=== PATIENT | female | born 2000 | race African-American/Black ===

== ENCOUNTER 2019-01-29 16:00 | Emergency (ER) | payer OTHER ==
[~2019-01-29] VITALS: Ht 172.7 cm; Wt 107.0 kg
[~2019-01-29 16:00] MED LIST: CODEINE SULFATE30 MG PO; DIFLUCAN150 M1 PO; DOXYCYCLINE 10100 MG PO
[2019-01-29] MEDS ORDERED: FLAGYL500 M1 PO (18:51)
[2019-01-29 19:30] VITALS: BP 108/74
[2019-01-29 20:38] LABS: URINE BILIRUBIN NEGATIVE (Negative); URINE BLOOD TRACE (Negative); URINE CLARITY CLEAR; URINE COLOR YELLOW; URINE GLUCOSE-RANDOM* NEGATIVE (Negative); URINE KETONES TRACE (Negative); URINE LEUKOCYTES NEGATIVE (Negative); URINE NITRITE NEGATIVE (Negative); URINE PROTEIN (DIPSTICK) 1+ (Negative); URINE SPECIFIC GRAVITY >= 1.030 (1.005-1.035); URINE UROBILINOGEN 0.2 E.U./dl (0.2-1.0)
[2019-01-29 20:54] LABS: BACTERIA 1-9 Few /HPF (None Seen); CASTS None Seen /LPF (None Seen); CRYSTALS None Seen /LPF (None Seen); SQUAMOUS 4-10 Moderate /LPF (0-3); URINE RBC 0-2 Rare /HPF (0-2); URINE WBC 6-15 Few /HPF (0-5)
== END 2019-01-29 19:32 | disposition home or self-care (01) ==
LOC: ER 16:00
PROVIDERS: Nurse Practitioner
DX: J06.9 Acute upper respiratory infection, unspecified (principal); F17.210 Nicotine dependence, cigarettes, uncomplicated

== ENCOUNTER → 2019-02-08 | Outpatient (CLI) | payer OTHER ==
[2019-02-08] VITALS (7 sets, daily range): BP systolic 98–112; BP diastolic 50–70
[~2019-02-08] VITALS: Ht 172.7 cm; Wt 104.3 kg
[~2019-02-08] MED LIST changes: +ACETAMINOPHEN325 M1 PO; +FLAGYL500 M1 PO; +HYDROCODON-ACE1 EAC7 PO; +PERCOCET PO; +SENNA8.6 MG PO; +TRAMADOL 50 MG50 MG PO
--- NOTE | 2019-02-08 13:34 | NUR ---
1330-PT DC'D HOME PER . PT RECOVERED IN HOLDING AFTER BIOPSY FOR ABOUT AN HOUR, VSS, FAMILY REMAINED AT BS. DC INSTRUCTIONS REVIEWED [facility] PT AND PTS MOTHER, ALL QUESTIONS ANSWERED. BANDAIDE OVER BIOPSY SITE-C/D/I
--- NOTE | 2019-02-12 17:06 | PATH ---
[facility] [address] [place] [address] PATHOLOGY RPT PROCEDURE Name: ROSETTA PHILIPPE Room #: REG FABIOLA Gomez.#: [id number] ������������������ Admission: 02/08/19 ������������������ Date of : [birth year] Discharge: Report #: [id number] Path Case #: [id number] [facility] Accession Number: [id number] . 01 Material submitted: . mediastinum - MEDIASTINAL MASS . 01 Clinical history: . Mediastinal mass . 02 Diagnosis: "Mediastinal mass", image guided needle biopsy: - Scant fragments of tissue with an atypical lymphoid infiltrate, worrisome for Hodgkin lymphoma (see comment). (CLW:rolando 02/12/2019) QTP/02/12/2019 . 02 Comment: Sections show needle core biopsy fragments of tissue with a fibrous stroma. Fibrous bands are noted. A cellular infiltrate composed of histiocytes, granulocytes and plasma cells are seen. Scattered atypical cells are noted. No classic Albert Peter cells are identified. Properly controlled immunohistochemical stains are performed. . Block A1 CD30 - numerous scattered CD30 positive cells, CD15 - rare possible co-expression with CD30, MUM1 - scattered larger cells noted, PAX5 - highlights B cells, rare larger cell weakly staining, CD3 - highlights admixed T cells, ALK1 - nonreactive. . Overall the diagnosis is worrisome for Hodgkin lymphoma. Additional tissue / re-biopsy for complete morphological examination with fresh tissue submitted for flow cytometry may provide additional information, if clinically indicated. The case is co-reviewed with Dr. Sharona Hope and Dr. Kari Hurtado. Clinical and radiographic correlation is required. . (CLW:rolando 02/12/2019) . 02 Electronically signed: . Ju Guillen MD, Pathologist NPI- [id number] . 01 Gross description: . The specimen is received in formalin, labeled "Rosetta Philippe, CT-guided, mediastinal mass", are multiple mak needle cores and its [address] [address] PATHOLOGY RPT PROCEDURE Name: PHILIPPEROSETTA MARTE Room #: REG [facility].#: [id number] ������������������ Admission: 02/08/19 ������������������ Date of : 98 Discharge: Report #: [id number] Path Case #: [id number] fragments measuring 0.7 x 0.4 x 0.1 cm in aggregate. The specimen is entirely submitted in A1-A2. (SWS; 02/08/2019) [facility] . 02 Pathologist provided ICD-10: J98.59 . 02 CPT . 302963, J74617, S06798 Specimen Comment: A courtesy copy of this report has been sent to Specimen Comment: [phone], . Specimen Comment: Report sent to / DR LIMON Performed at: 01 [facility] [address] [place] [address] [id number] MD Jose Roberto Bolanos MD Phone: [phone] Performed at: 02 [facility] [address] [id number] MD Cy Solomon MD Phone: [phone]
== END | disposition home or self-care (01) ==
LOC: CAT 08:58
DX: J98.59 Other diseases of mediastinum, not elsewhere classified (principal); Z98.890 Other specified postprocedural states; F17.210 Nicotine dependence, cigarettes, uncomplicated; Z79.891 Long term (current) use of opiate analgesic; Z87.440 Personal history of urinary (tract) infections; Z79.899 Other long term (current) drug therapy

== ENCOUNTER 2019-02-17 10:44 | Inpatient (IN) | payer OTHER ==
[~2019-02-17] VITALS: Ht 172.7 cm; Wt 103.4 kg
[~2019-02-17 10:44] MED LIST changes: -ACETAMINOPHEN325 M1 PO; -HYDROCODON-ACE1 EAC7 PO; -PERCOCET PO; -SENNA8.6 MG PO
[2019-02-17 10:48] VITALS: BP 129/103
[2019-02-17 11:15] LABS: HEMATOCRIT 38.1 % (37.0-47.0); MCH 29.6 pg (26.0-34.0); MCHC 34.1 g/dL (28.0-37.0); MCV 86.8 fL (80.0-100.0); PLATELET COUNT 596 thou/uL (150-400); RBC 4.39 mil/uL (4.20-5.00); RDW 13.7 % (10.5-14.5); WBC 7.6 thou/uL (4.0-11.0)
[2019-02-17 11:18] LABS: CALCIUM 10.1 mg/dL (8.5-10.1); CREATININE 0.9 mg/dL (0.6-1.0); POTASSIUM 3.8 mmol/L (3.5-5.1)
[2019-02-17 11:24] LABS: ALBUMIN 3.7 g/dL (3.4-5.0); TOTAL BILIRUBIN 0.5 mg/dL (<0.1-1.0); TOTAL PROTEIN 9.4 g/dL (6.4-8.2)
--- NOTE | 2019-02-17 11:35 | EKG ---
[address] [address] ELECTROCARDIOGRAM REPORT Name: JAMES PHILIPPE Room #: [facility]#: [id number] ������������������ Admission: ������������������ Attend Phys: Discharge: ������������������ Date of : 98 Report #: [id number] ����������������������������������������������������������������� [id number] THIS REPORT FOR: //name// [facility] ED Test Date: 2019-02-17 Test Time: 11:25:34 Pat Name: JAMES PHILIPPE Department: Room: Gender: F Wan Support Specialist: TRES : 2000 Requested By: Angela Lopez Order Number: [id number] MD: Salvador Reagan Measurements Intervals [place] Rate: 95 P: 26 NH: 165 QRS: 26 QRSD: 89 T: 37 QT: 367 QTc: 462 Interpretive Statements Sinus rhythm No previous ECG available for comparison Electronically Signed On 02-17-2019 11:35:14 CDT by Salvador Reagan [email or web address] ��������������������������������������������� <ELECTRONICALLY SIGNED> ���������������������������������������� By: Salvador Reagan MD ��������������������������������������������� 02/17/19 1135 1125 1125 Salvador Reagan MD /EPI
[2019-02-17 12:15] LABS: ABSOLUTE NEUTROPHILS 4.5 thou/uL (1.4-8.2)
[2019-02-17 13:19] VITALS: BP 112/71
[2019-02-17 13:32] VITALS: BP 107/68
--- NOTE | 2019-02-17 13:44 | NUR ---
received report from Monica/rn in er @ 6515. pt received to room 358, settled in and oriented to room. pt up ad ha w/ a steady, balanced and coordinated gait. tele on.
[2019-02-17 14:01] LABS: APTT 33.6 Seconds (24.5-32.8); PROTIME 10.6 Seconds (9.3-11.4)
[2019-02-17 14:33] VITALS: BP 110/71
[2019-02-17 16:39] VITALS: BP 112/89
[2019-02-17 19:11] VITALS: BP 103/63
[2019-02-18 03:52] VITALS: BP 114/76
--- NOTE | 2019-02-18 04:17 | NUR ---
ASSUMED CARE OF PT AT 1900. A&Ox4, COOPERATIVE. VS STABLE. SR ON TELE. LUNG SOUNDS WERE CLEAR, A LITTLE DIMINISHED, NO COUGH OR WHEEZING. C/O PAIN, RATED 6/10 ON Q PAIN ASSMT. PAIN MED GIVEN 1X SO FAR THIS SHIFT. CONSENTS FOR PROCEDURE AND TRANSFUSION IF NEEDED SIGNED AND PLACED IN CHART. MOTHER AT BEDSIDE. UP AD DENNYS TO BR. CONTINENT. ABLE TO SLEEP OVER NOC. PROGRESSING TOWARDS POC GOALS.
[2019-02-18 07:17] VITALS: BP 102/58
[2019-02-18 11:13] VITALS: BP 96/55
--- NOTE | 2019-02-18 14:48 | NUR ---
Assumed care of pt at 0700. Pt is A&O to person, place, time, and situation. She is calm and cooperative. Tele is sinus arrythmia in the 80-90s. Pt has complained of on-going R chest pain, partially relived by medication and positioning. Pt also complanied of dizziness, chest tightness, and SOB. Notified Dr. Dailey and started PT on 2L via NC, and gave PRN medication to relieve anxiety. Upon reassessment pt reports decresed SOB and chest tightness. Pt is up ad ha to BR. Family has been at bedside. Pt is slowly progressing toward POC goals. Will continue to monitor and assess.
--- NOTE | 2019-02-18 14:50 | NUR ---
INITIAL ASSESSMENT: Received consult due to pt not having health insurance. RONY reviewed chart and spoke with attending physician. Pt was admitted from home due to shortness of breath/chest pain. Pt with mediastinal/lung mass. CTS consulted. Pt to have mediastinoscopy and bx. Oncology consulted and is following. RONY met with pt at bedside. Introduced role of SW. Pt is alert/orientated x 4. Pt lives at home and was independent with ADLS prior to admission. Pt states that she is currently working on a [place]-Medicaid application with [employer]. Provided pt with RONY's contact info. RONY is following to assist as needed with discharge planning.
[2019-02-18 15:22] VITALS: BP 113/72
[2019-02-18 19:40] VITALS: BP 106/81
[2019-02-19] VITALS (10 sets, daily range): BP systolic 93–131; BP diastolic 61–82
--- NOTE | 2019-02-19 06:25 | NUR ---
Medicated for soreness on her chest at HS with some relief. Lorazepam also given for anxiety with relief. She slept some. Kept NPO per order. O2 at 2L/NC and wears intermittently for comfort. O2 sat has been in the upper 90's. SR at rest then gets tachychardic when up to the bathroom. Will continue to monitor.
--- NOTE | 2019-02-19 07:01 | HC ---
[facility] [place] [address] CONSULTATION Name: JAMES PHILIPPE Room #: 358-P ADM IN M.R.#: [id number] Admission: 02/17/19 ������������������ Attend Phys: Mike Dailey MD Discharge: ������������������ Date of : 98 Report #: [id number] THIS REPORT FOR: //name// CC: BERNIE Dailey MD HISTORY OF PRESENT ILLNESS: The patient is a very pleasant 18-year-old -Cuban female who had presented to the hospital about a month ago with hemoptysis and cough. CAT scan on 01/15/2019 revealed an anterior mediastinal mass measuring 9.3 cm transverse x 4.6 cm AP x 8.9 cm superior to inferior. The differential consideration included thymic tumor, lymphoma, teratoma, germinoma among others. A CT needle biopsy was suspicious for Hodgkin's, but not diagnostic. The patient came to the hospital again complaining of shortness of air and hyperventilating and complaining of pain everywhere, specifically, her chest and her upper abdomen. The patient has no fever. Does have sweats and chills. Does have about a 55-pound weight loss in the last 6 months, has chest discomfort and also talks about abdominal pain, but it is up underneath the ribs, mostly on the left more than the right. Has decreased appetite. No nausea, no vomiting. No new bowel changes. No blood in her urine or stool. No skin rash. Has generalized fatigue. ALLERGIES: None known. MEDICATIONS: None. FAMILY HISTORY: No cancer. SOCIAL HISTORY: Positive for marijuana use, used in the past daily. She is not currently a student. 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 The patient's mother not in attendance at this time. PHYSICAL EXAMINATION: VITAL SIGNS: The patient's height is 5 feet 8 inches, 172.7 cm. Weight is 228 pounds or 103.7 kilograms. Note that she says she weighed 285 pounds about 6 months ago. Blood pressure is 102/58 in the left arm, O2 sat 95%, respirations 20, pulse 113 and afebrile at 98.1. MOOD: She is alert and pleasant. Face is symmetrical. Oropharynx clear. She is moving arms and legs. Speech and thought pattern appear to be normal. LYMPHATICS: No enlarged lymph nodes in the supraclavicular, cervical or axillary region. ABDOMEN: Slightly obese. No masses. Does describe some tenderness in the upper quadrants, but it is probably more subchondral and may be related to coughing. EXTREMITIES: Without clubbing, cyanosis or edema. [facility] [address] [place] [address] CONSULTATION Name: DENAEJAMES L Room #: 358-P [facility] IN M.R.#: [id number] Admission: 02/17/19 ������������������ Attend Phys: Mike Dailey MD Discharge: ������������������ Date of : 98 Report #: [id number] LABORATORY DATA: Lab here has had normal liver functions. It shows BUN of 8, creatinine of 0.9. Total protein 9.4. Albumin 3.7. Coags normal, though aPTT is barely high at 33.6 and then 31 last month. White count of 7.6, hemoglobin 13, MCV 86.8, RDW 13.7 and platelets 596,000, they were 450,000 back in December. Differential has a few extra monocytes. MEDICATIONS: At this time include p.r.n. Tylenol, p.r.n. Zofran, p.r.n. morphine, p.r.n. lorazepam, mupirocin for her nose and also cefazolin prior to surgery. ASSESSMENT AND PLAN: 1. Anterior mediastinal mass measuring 9.3 cm with sweats. I agree that malignancy is very likely; the patient is aware of this. We will await final biopsy. If this is Hodgkin's lymphoma, we will need to consider PET scan. We will also check sed rate and LDH. If it is Hodgkin's lymphoma, I would probably consider chemotherapy and possible radiation therapy given the size of the mass. We will await these issues. We will also need to make sure and check any fertility issues for the patient. 2. Elevated total protein, probably reactive in nature, but we will check serum protein electrophoresis and SIFE. 3. Lack of insurance. The patient is applying for Medicaid. If she does not get insurance, we may need to have her seen another physician on the [place] side as my employment does not allow me to see [place] residents without insurance at my office. 4. Sweats, most likely due to malignancy. We will follow with you. ��������������������������������������������� <ELECTRONICALLY SIGNED> ���������������������������������������� By: Yared Vasquez MD ��������������������������������������������� 02/19/19 0701 0843 0007 Yared Vasquez MD /nt
--- NOTE | 2019-02-19 10:17 | 2DMMODE ---
[facility] [address] [place] [address] 2 D/M-MODE ECHOCARDIOGRAM Name: JAMES PHILIPPE Room #: 358-P ADM IN M.R.#: [id number] ������������� Admission: 02/17/19 ������������� Attend Phys: Mike Dailey MD Discharge: ��� ������������� ��� Date of : [birth year] Date of Service: 02/19/19 1016 �� Report #: [id number] �������� ��������������������������������������������[id number] THIS REPORT FOR: //name// APPROVED REPORT Study performed: 02/19/2019 09:13:23 EXAM: Comprehensive 2D, Doppler, and color-flow Echocardiogram Patient Location: Echo lab Room #: [facility] Status: routine BSA: 2.14 HR: 95 bpm BP: 107/67 mmHg Rhythm: NSR Other Information Study Quality: Good Indications Pre-Op 2D Dimensions RVDd: 34.39 mm IVSd: 10.72 (7-11mm) LVOT Diam: 21.32 (18-24mm) LVDd: 48.03 mm PWd: 10.96 (7-11mm) Ascending Ao: 23.12 (22-36mm) LVDs: 32.61 (25-40mm) Aortic Root: 31.12 mm IVC: 16.00 mm Volumes Left Atrial Volume (Systole) Single Plane 4CH: 20.52 mL Single Plane 2CH: 41.92 mL LA ESV Index: 17.00 mL/m2 Aortic Valve AoV Peak Jaskaran.: 1.09 m/s AO Peak Gr.: 4.71 mmHg LVOT Max P.18 mmHg LVOT Max V: 0.89 m/s SERGO Vmax: 2.93 cm2 Mitral Valve E/A Ratio: 1.0 MV Decel. Time: 148.95 ms MV E Max Jaskaran.: 0.93 m/s [facility] [address] [place] [address] 2 D/M-MODE ECHOCARDIOGRAM Name: JAMES PHILIPPE Room #: 358-[facility] IN [facility]#: [id number] ������������� Admission: 02/17/19 ������������� Attend Phys: Mike Dailey MD Discharge: ��� ������������� ��� Date of : [birth year] Date of Service: 02/19/19 1016 �� Report #: [id number] �������� ��������������������������������������������[id number] MV A Jaskaran.: 0.92 m/s MV PHT: 43.20 ms IVRT: 83.04 ms Pulmonary Valve PV Peak Jaskaran.: 0.87 m/s PV Peak Gr.: 3.04 mmHg Pulmonary Vein P Vein S: 0.57 m/s Left Ventricle The left ventricle is normal size. There is normal LV segmental wall motion. There is normal left ventricular wall thickness. Left ventricular systolic function is normal. The left ventricular ejection fraction is within the normal range. LVEF is 55-60%. Left ventricular filling pattern is normal for age. Right Ventricle The right ventricle is normal size. The right ventricular systolic function is normal. Atria The left atrium size is normal. The right atrium size is normal. Aortic Valve The aortic valve is normal in structure. No aortic regurgitation is present. There is no aortic valvular stenosis. Mitral Valve The mitral valve is normal in structure. There is no mitral valve regurgitation noted. No evidence of mitral valve stenosis. Tricuspid Valve The tricuspid valve is normal in structure. There is no tricuspid valve regurgitation noted. Pulmonic Valve The pulmonary valve is normal in structure. There is no pulmonic valvular regurgitation. Great Vessels The aortic root is normal in size. IVC is normal in size and collapses >50% with inspiration. [facility] [address] [place] [address] 2 D/M-MODE ECHOCARDIOGRAM Name: JAMES PHILIPPE Alba Room #: 358-P [facility] IN M.R.#: [id number] ������������� Admission: 02/17/19 ������������� Attend Phys: Mike Dailey MD Discharge: ��� ������������� ��� Date of : [birth year] Date of Service: 02/19/19 1016 �� Report #: [id number] �������� ��������������������������������������������[id number] There is no pericardial effusion. <Conclusion> The left ventricle is normal size. LVEF is 55-60%. The aortic valve is normal in structure. The mitral valve is normal in structure. The tricuspid valve is normal in structure. The pulmonary valve is normal in structure. There is no pericardial effusion. ��������������������������������������������� <ELECTRONICALLY SIGNED> ���������������������������������������� By: Onur Hopkins MD ��������������������������������������������� 02/19/19 1016 1016 1016 Onur Hopkins MD /INF
--- NOTE | 2019-02-19 13:56 | NUR ---
SW reviewed chart and spoke with nursing and attending physician. Surgery scheduled for today for biopsy of mass via anterior mediastinotomy. [facility] working with [facility] on [facility] application. RONY is following to assist as needed with discharge planning.
--- NOTE | 2019-02-19 14:26 | NUR ---
PATIENT LEFT UNIT FOR OR AT 1420.
--- NOTE | 2019-02-19 16:55 | NUR ---
ASSUMED CARE OF PATIENT AT 0700. PATIENT HAS BEEN NPO SINCE MIDNIGHT. SHE HAS BEEN NSR ON TELE. PATIENT REMAINS ON 2L OF O2 FOR COMFORT, NEEDED. BILATERAL UPPER ABDOMINAL PAIN WELL RIGHT CHEST PAIN FROM MIDMORNING ON. PAIN WAS PARTIALLY RELIEVED WITH PRN MEDICATION AND REPOSITIONING. PATIENT HAS HAD MILD ANXIETY AND WAS TREATED WITH PRN MEDICATION. FAMILY AND FRIENDS HAVE BEEN AT THE BEDSIDE. PATIENT LEFT UNIT FOR PRE-OP AROUND 1440. PATIENT IS SLOWLY PROGRESSING TOWARD POC/DISCHARGE GOALS.
[2019-02-20] VITALS (8 sets, daily range): BP systolic 109–120; BP diastolic 57–61
--- NOTE | 2019-02-20 06:32 | NUR ---
Pt. didn't go to sleep till later this am. Hydrocodone x1 given for soreness on right chest incision with some relief. Tolerating po fluids well ,IVF dc'd per order. Right chest incision with dressing clean,dry and intact. Up ad ha in room with steady gait. Making progress towards care plan goals.
[2019-02-20] MEDS ORDERED: ACETAMINOPHEN325 M1 PO (11:28)
[2019-02-20] MEDS ORDERED: HYDROCODON-ACE1 EAC7 PO (11:28)
--- NOTE | 2019-02-20 13:00 | NUR ---
PT IS FAIRLY WELL CONTROLLED WITH PO NORCO...RESTING IN BED...
--- NOTE | 2019-02-20 17:00 | NUR ---
PT HEART RATE WAS ELEVATED 150'S...SHE IS WAILING IN ROOM AND PACING BACK AND FORTH...STATES HER PAIN IS 10/10 AND FEELS LIKE STABBING AND BURNING...SHE CONTINUES TO CRY HYSTERICALLY...ICE PACK GIVEN...MEDICATED WITH ATIVAN AND FENTANYL WITH GOOD RELIEF OBTAINED...DR MURO NOTIFIED...
--- NOTE | 2019-02-20 17:49 | NUR ---
PT TO DISCHARGE TO HOME..WILL FOLLOW UP WITH ONCOLOGIST AND CV SURGEON IN 2 WEEKS...SWS HAS [employer] WORKING ON MEDICAID...UNABLE TO ARRANGE HOME HEALTH UNTIL PATIENT OBTAINS MEDICAIDE...WILL REVIEW DISCHARGE PAPERS WHEN MOTHER ARRIVES...
--- NOTE | 2019-02-21 12:06 | HC ---
[facility] [address] [place] [address] CONSULTATION Name: JAMES PHILIPPE Alba Room #: 358-P [facility] IN M.R.#: [id number] Admission: 02/17/19 ������������������ Attend Phys: Mike Dailey MD Discharge: 02/20/19 ������������������ Date of : 98 Report #: [id number] THIS REPORT FOR: //name// CC: Corona Dailey DATE OF SERVICE: 02/17/2019 HISTORY OF PRESENT ILLNESS: We were asked to see the patient. The patient is a 18-year-old who presents to the Emergency Department with chest pain. The patient has a history of hospitalization at [facility] from 01/15/2019 through 01/16/2019 for hemoptysis and chest pain. This led to the diagnosis of an anterior mediastinal mass. A CT-guided biopsy was done and was read as suspicious for lymphoma, but no definitive pathologic diagnosis was made. We note at home the patient has had a several month history of weight loss, night sweats and chills and chest pain. The patient denies having fevers to me, however. The patient denies other chronic disease. ALLERGIES: None known. MEDICATIONS: None known. FAMILY HISTORY: Negative for malignancy. SOCIAL HISTORY: Positive for tobacco use. 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 REVIEW OF SYSTEMS: CONSTITUTIONAL: As mentioned, no fever, but admits to night sweats and chills. RESPIRATORY: Admits to shortness of breath. CARDIAC: Admits to chest pain. Denies palpitations. GASTROINTESTINAL: Admits to abdominal discomfort and decreased appetite. Denies nausea and vomiting. GENITOURINARY: Denies hematuria or dysuria. SKIN: Denies rash. NEUROLOGIC: Denies focal weakness, but admits to generalized fatigue. PSYCHIATRIC: Denies depression or anxiety. HEMATOLOGIC: Denies easy bruisability or anemia. ENDOCRINE: Denies goiter or tremors. PHYSICAL EXAMINATION: VITAL SIGNS: Blood pressure 107/68, heart rate 84, respiratory rate 19, temperature 36.7. GENERAL: The patient is lying in bed, seems comfortable, does not look malnourished. Appears mildly obese. [facility] [address] [place] [address] CONSULTATION Name: PHILIPPEJAMES L Room #: 358-P [facility] IN .R.#: [id number] Admission: 02/17/19 ������������������ Attend Phys: Mike Dailey MD Discharge: 02/20/19 ������������������ Date of : 98 Report #: [id number] HEENT: Pupils are round and equal. No jaundice. Normocephalic, gaze conjugate. NECK: No mass, no bruit. CHEST: Clear to auscultation. Chest wall is tender with an area of swelling in the left and the right anterior chest, but no discrete masses palpable. HEART: Rhythm regular, no murmurs. ABDOMEN: Soft. Tenderness to mild palpation, but no rebound or guarding. No masses palpable. No organomegaly is detected. SKIN: No evidence of rash or infection. EXTREMITIES: No cyanosis or edema. MUSCULOSKELETAL: No bone or joint asymmetry or deformity. NEUROLOGIC: No obvious motor or sensory dysfunction. IMPRESSION: The patient appears to have an anterior mediastinal mass based on previous CAT scan. This may be growing into the anterior chest wall. We have recommended biopsy of this via right anterior medial sternotomy. The risks and details of this were discussed with the patient. Options and alternatives were reviewed. Based on the existing histology adequate tissue sample to determine whether or not this is lymphoma as appropriate. The patient understands all of this and wishes to proceed. Thank you for the consult. ��������������������������������������������� <ELECTRONICALLY SIGNED> ���������������������������������������� By: Eduardo Rockwell MD ��������������������������������������������� 02/21/19 1206 1749 0608 Eduardo Rockwell MD /nt
--- NOTE | 2019-02-21 12:06 | O ---
[facility] [place] [address] OPERATIVE REPORT Name: JAMES PHILIPPE Room #: 358-P [facility] IN M.R.#: [id number] Admission: 02/17/19 ������������������ Attend Phys: Mike Dailey MD Discharge: 02/20/19 ������������������ Date of : [birth year] Report #: [id number] THIS REPORT FOR: //name// CC: Corona Dailey DATE OF SERVICE: 02/19/2019 PREOPERATIVE DIAGNOSIS: Anterior mediastinal mass. POSTOPERATIVE DIAGNOSIS: Anterior mediastinal mass. OPERATION: Right anterior medial sternotomy. SURGEON: Eduardo Rockwell M.D. PARTY PLAN SELLING DISTRIBUTOR: PEG Freitas ANESTHESIA: General. INDICATIONS: The patient is a 18-year-old seen at the request of Dr. Camacho and the hospitalists for an anterior mediastinal mass. The patient has been evaluated since the end of December for a large anterior mediastinal mass that on CT scan is infiltrating into the right chest wall. CT biopsy is suggestive of lymphoma, but more tissue is required for definitive diagnosis. FINDINGS AND TECHNIQUE: After general anesthesia was established, an incision was made in the second interspace on the right side. This incision was deepened through the pectoralis muscle. It was clear that there was tumor infiltrating the chest wall. In fact, we did not need to go through the chest wall to obtain satisfactory samples of tissue. Characteristic fish/material was excised. There was semblance of a capsule surrounding this pathologic tissue. This was submitted in total for permanent pathology and sent as directed by the pathologist. When hemostasis was satisfactory, the wound was closed in layers and the patient was taken to the recovery area in good condition having tolerated the procedure well. All counts reported as correct. ��������������������������������������������� <ELECTRONICALLY SIGNED> ���������������������������������������� By: Eduardo Rockwell MD ��������������������������������������������� 02/21/19 1206 1042 1249 Eduardo Rockwell MD /nt
[2019-02-22 18:05] LABS: GLOBULIN TOTAL 3.9 g/dL (2.2-3.9); M-SPIKE Not Observed g/dL (Not Observed)
== END 2019-02-20 18:31 | disposition home or self-care (01) | DRG 166 ==
LOC: ER 10:44 → 3W 12:56 → EROBS 12:56 → 3W 13:38
PROVIDERS: Internal Medicine Hematology & Oncology; Nurse Practitioner Family; ADMIT Internal Medicine
PROC: 0WBC0ZX Excision of Mediastinum, Open Approach, Diagnostic (ICD-10-PCS; principal; 2019-02-19)
DX: J98.59 Other diseases of mediastinum, not elsewhere classified (principal); E43 Unspecified severe protein-calorie malnutrition; F17.210 Nicotine dependence, cigarettes, uncomplicated; F12.90 Cannabis use, unspecified, uncomplicated; R91.8 Other nonspecific abnormal finding of lung field; E66.9 Obesity, unspecified; Z68.34 Body mass index [BMI] 34.0-34.9, adult; Z72.89 Other problems related to lifestyle; Z71.41 Alcohol abuse counseling and surveillance of alcoholic; Z71.6 Tobacco abuse counseling; Z71.51 Drug abuse counseling and surveillance of drug abuser
CPT/HCPCS: 10879; 50010; 50101; 50386; 50403; 51301; 54118; 56524; 56526; 62110; 62900; 65020; 65040; 65105; 70005

== ENCOUNTER 2019-02-25 17:13 | Emergency (ER) | payer OTHER ==
[~2019-02-25] VITALS: Ht 172.7 cm; Wt 107.0 kg
[~2019-02-25 17:13] MED LIST changes: +ACETAMINOPHEN325 M1 PO; +HYDROCODON-ACE1 EAC7 PO
[2019-02-25 17:51] LABS: ABSOLUTE NEUTROPHILS 4.8 thou/uL (1.4-8.2); BASOPHILS 0.4 % (0.0-2.0); EOSINOPHILS 2.2 % (0.0-3.0); HEMATOCRIT 36.6 % (37.0-47.0); HEMOGLOBIN 12.2 gm/dL (12.0-15.0); LYMPHOCYTES 15.2 % (24.0-44.0); MCH 29.1 pg (26.0-34.0); MCHC 33.4 g/dL (28.0-37.0); MCV 87.1 fL (80.0-100.0); MONOCYTES 8.1 % (1.0-8.0); PLATELET COUNT 484 thou/uL (150-400); POLYS 74.1 % (36.0-66.0); RDW 13.8 % (10.5-14.5); WBC 6.5 thou/uL (4.0-11.0)
[2019-02-25] MEDS ORDERED: SENNA8.6 MG PO (17:54)
[2019-02-25 17:59] LABS: CREATININE 0.8 mg/dL (0.6-1.0); POTASSIUM 3.7 mmol/L (3.5-5.1)
[2019-02-25] MEDS ORDERED: PERCOCET PO (18:45)
[2019-02-25 19:19] VITALS: BP 118/71
== END 2019-02-25 19:20 | disposition home or self-care (01) ==
LOC: ER 17:13
PROVIDERS: Emergency Medicine
DX: G89.18 Other acute postprocedural pain (principal); R07.9 Chest pain, unspecified; F41.9 Anxiety disorder, unspecified; F32.9 Major depressive disorder, single episode, unspecified; K59.00 Constipation, unspecified; J98.59 Other diseases of mediastinum, not elsewhere classified; J45.909 Unspecified asthma, uncomplicated; F17.210 Nicotine dependence, cigarettes, uncomplicated

== ENCOUNTER 2019-12-22 18:58 | Emergency (ER) | payer OTHER ==
[~2019-12-22] VITALS: Ht 175.3 cm; Wt 118.4 kg
[~2019-12-22 18:58] MED LIST changes: +PERCOCET PO; +SENNA8.6 MG PO
[2019-12-22] MEDS ORDERED: ADVIL200 M1 PO (19:46)
[2019-12-22] MEDS ORDERED: EXCEDRIN MIGRA1 EAC1 PO (19:46)
[2019-12-22 20:23] LABS: ABSOLUTE NEUTROPHILS 3.3 thou/uL (1.4-8.2); BASOPHILS 0.6 % (0.0-2.0); EOSINOPHILS 0.8 % (0.0-3.0); HEMATOCRIT 36.4 % (37.0-47.0); HEMOGLOBIN 11.9 gm/dL (12.0-15.0); LYMPHOCYTES 21.9 % (24.0-44.0); MCH 30.1 pg (26.0-34.0); MCHC 32.6 g/dL (28.0-37.0); MCV 92.1 fL (80.0-100.0); MONOCYTES 9.6 % (1.0-8.0); PLATELET COUNT 335 thou/uL (150-400); POLYS 67.1 % (36.0-66.0); RBC 3.95 mil/uL (4.20-5.00); RDW 16.2 % (10.5-14.5)
[2019-12-22 20:30] LABS: ANION GAP 9 mmol/L (7-16); BUN 15 mg/dL (7-18); CALCIUM 9.2 mg/dL (8.5-10.1); CHLORIDE 103 mmol/L (98-107); CO2 26 mmol/L (21-32); CREATININE 0.8 mg/dL (0.6-1.0); GLUCOSE 102 mg/dL (74-106); POTASSIUM 3.6 mmol/L (3.5-5.1); SODIUM 138 mmol/L (136-145)
[2019-12-22 20:40] LABS: ALBUMIN 3.6 g/dL (3.4-5.0); LIPASE 207 U/L (73-393); SGOT 12 U/L (15-37); SGPT 15 U/L (30-65); TOTAL BILIRUBIN 0.2 mg/dL (<0.1-1.0); TOTAL PROTEIN 7.3 g/dL (6.4-8.2); TROPONIN-I <0.06 ng/mL (<0.06)
[2019-12-22] MEDS ORDERED: ZOFRAN ODT4 MG DISSOLVE (21:15)
[2019-12-22 21:19] VITALS: BP 103/46
--- NOTE | 2019-12-23 08:45 | EKG ---
[facility] [place] [address] [place] [address] ELECTROCARDIOGRAM REPORT Name: JAMES PHILIPPE Room #: [facility]#: [id number] Admission: 12/22/19 Attend Phys: Discharge: 12/22/19 Date of : [birth year] Report #: [id number] THIS REPORT FOR: cc: Corona Camacho MD, Jeremy C. MD Lundgren, Craig H. MD [facility] THIS REPORT FOR: //name// [facility] ED Test Date: 2019-12-22 Test Time: 19:02:12 Pat Name: JAMES PHILIPPE Department: Room: Gender: F Diet Therapist: SHANITA : 2000 Requested By: Bridgett Naranjo Order Number: [id number] MD: Tito August Measurements Intervals [place] Rate: 98 P: 42 FL: 157 QRS: 33 QRSD: 94 T: -13 QT: 350 QTc: 447 Interpretive Statements Sinus rhythm Nonspecific T wave abnormality Compared to ECG 02/17/2019 11:25:34 T-wave abnormality is now present Electronically Signed On 12-23-2019 8:44:00 ESTHETICIAN FACIALIST by Tito August [email or web address] <ELECTRONICALLY SIGNED> By: Tito August MD, FACC 12/23/19 0844 [id number] Tito August MD, [facility] /EPI
== END 2019-12-22 21:40 | disposition home or self-care (01) ==
LOC: ER 18:58
PROVIDERS: Physician Assistant
DX: B34.9 Viral infection, unspecified (principal); R07.89 Other chest pain; R51 Headache; R11.2 Nausea with vomiting, unspecified; H92.09 Otalgia, unspecified ear; J45.909 Unspecified asthma, uncomplicated; E66.9 Obesity, unspecified; F17.210 Nicotine dependence, cigarettes, uncomplicated; Z79.899 Other long term (current) drug therapy; Z79.82 Long term (current) use of aspirin

== ENCOUNTER 2020-03-09 19:34 | Emergency (ER) | payer OTHER ==
[~2020-03-09] VITALS: Ht 175.3 cm; Wt 107.5 kg
[~2020-03-09 19:34] MED LIST changes: +ADVIL200 M1 PO; +EXCEDRIN MIGRA1 EAC1 PO; +ZOFRAN ODT4 MG DISSOLVE
[2020-03-09 20:52] LABS: ABSOLUTE NEUTROPHILS 1.8 thou/uL (1.4-8.2); BASOPHILS 0.5 % (0.0-2.0); EOSINOPHILS 0.6 % (0.0-3.0); HEMATOCRIT 42.6 % (37.0-47.0); HEMOGLOBIN 14.4 gm/dL (12.0-15.0); LYMPHOCYTES 44.6 % (24.0-44.0); MCH 29.9 pg (26.0-34.0); MCHC 33.8 g/dL (28.0-37.0); MCV 88.7 fL (80.0-100.0); PLATELET COUNT 296 thou/uL (150-400); POLYS 42.3 % (36.0-66.0); RDW 15.4 % (10.5-14.5); WBC 4.2 thou/uL (4.0-11.0)
[2020-03-09 21:08] LABS: ANION GAP 14 mmol/L (7-16); BUN 10 mg/dL (7-18); CALCIUM 9.3 mg/dL (8.5-10.1); CHLORIDE 101 mmol/L (98-107); CO2 21 mmol/L (21-32); CREATININE 1.1 mg/dL (0.6-1.0); GLUCOSE 76 mg/dL (74-106); LIPASE 258 U/L (73-393); MAGNESIUM 1.8 mg/dL (1.8-2.4); SODIUM 136 mmol/L (136-145); TROPONIN-I <0.06 ng/mL (<0.06)
[2020-03-09 21:10] LABS: POTASSIUM 2.9 mmol/L (3.5-5.1)
[2020-03-09 22:55] VITALS: BP 108/66
--- NOTE | 2020-03-10 09:28 | EKG ---
[facility] [place] [address] ELECTROCARDIOGRAM REPORT Name: JAMES PHILIPPE Room #: DEP [facility]#: [id number] Admission: 03/09/20 Attend Phys: Discharge: 03/09/20 Date of : [birth year] Report #: [id number] THIS REPORT FOR: cc: Corona Camacho MD, Jeremy C. 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2000 Requested By: Mauro Madden Order Number: [id number] MD: Tito Aguust Measurements Intervals [place] Rate: 107 P: NV: QRS: 9 QRSD: 101 T: 264 QT: 316 QTc: 422 Interpretive Statements Sinus tachycardia with occasional atrial premature complexes Nonspecific T abnormalities, inferior leads Baseline wander in lead(s) II,III,aVL,aVF,V2,V6 Compared to ECG 12/22/2019 19:02:12 No significant change was found Electronically Signed On 03-10-2020 9:26:35 CDT by Tito August [email or web address] <ELECTRONICALLY SIGNED> By: Tito August MD, FACC 03/10/20 0926 12 12 Tito August MD, FAC /EPI
== END 2020-03-09 22:52 | disposition home or self-care (01) ==
LOC: ER 19:34
PROVIDERS: Emergency Medicine
DX: R07.9 Chest pain, unspecified (principal); R06.82 Tachypnea, not elsewhere classified; R10.13 Epigastric pain; N64.4 Mastodynia; J45.909 Unspecified asthma, uncomplicated; F17.210 Nicotine dependence, cigarettes, uncomplicated; Z79.899 Other long term (current) drug therapy; Z79.82 Long term (current) use of aspirin

== ENCOUNTER 2020-03-13 10:16 | Emergency (ER) | payer OTHER ==
[~2020-03-13] VITALS: Ht 175.3 cm; Wt 107.0 kg
--- NOTE | ~2020-03-13 | EMS ---
[address] [address] EMS Patient Care Report Name: JAMES PHILIPPE Room #: PRE ER M.R.#: [id number] Admission: Attend Phys: Discharge: Date of : [birth year] Report #: [id number] THIS REPORT FOR: //name// Report Transmitted: 03/13/2020 10:20 EMS Care Summary [place], [place]/[facility] Incident [id number] @ 03/13/2020 09:43 Incident Location [address] [place] [address], [place] [address] Patient JAMES PHILIPPE Female, 19 Years 2000 Patient Address [address] [place] [address], [place] [address] Patient History Cancer, Unspecified, Patient Allergies No known allergies, Patient Medications None Reported, Chief Complaint SOB Disposition Transported No Lights/Brickeys Dispatch Reason Chest Pain (Non-Traumatic) Transported To [facility] Narrative UPON ARRIVAL PT AMBULATORY CONSCIOUS AND ALERT, PT AMBULATES TO AMBULANCE ON ARRIVAL TO SCENE. PT C/O CHEST PAIN WITH SOB ALL NIGHT LONG. PT STATES PAIN WORSE WHEN TALKING. PT WAS SEEN IN ER 2 DAYS AGO FOR THE SAME THING AND WAS TESTED FOR B[place]RE[place], PT STATED SHE WAS NEGATIVE. UPON ARRIVAL TO [facility] [address] [place] [address] EMS Patient Care Report Name: JAMES PHILIPPE Room #: PRE [facility]#: [id number] Admission: Attend Phys: Discharge: Date of : [birth year] Report #: [id number] TELL HER SHE COULDN'T HAVE GOTTEN HER RESULTS THAT FAST NOR THROUGH EMAIL SHE CLAIMED, THEY CALL. [facility] TOOK [facility] PRECAUTIONS. Initial Vitals @09:53P: 106,BP: 105/68,CO: 1,SpO2: 98, @09:53P: 110,BP: 105/71,CO: 2,SpO2: 100, @09:51P: 122,R: 20,BP: 131/84,Pain: 8/10,GCS: 15,CO: 2,SpO2: 98,Revised Trauma: 12, @10:04P: 160,CO: 4,SpO2: 97, @09:54P: 109,SpO2: 99,NH Suspected: false Assessments @09:50MENTAL:Person Oriented,Time Oriented,Place Oriented,Event Oriented,SKIN:HEENT:Head/Face: No Abnormalities,LUNG SOUNDS:General: No Abnormalities,ABDOMEN:General: No Abnormalities,PELVIS//GI:EXTREMITIES:Left Arm: No Abnormalities,Right Arm: No Abnormalities,Left Leg: No Abnormalities,Right Leg: No Abnormalities,PULSE:Radial: 2+ Normal,NEURO:No Abnormalities, Impression Chest pain on breathing Procedures @09:50ALS AssessmentResponse: UnchangedSucceeded@09:5412-Lead ECGResponse: UnchangedSucceeded@09:533-Lead ECGResponse: UnchangedSucceeded Timeline 09:42,Call Received :42,Dispatch Notified 09:43,Dispatched 09:44,En Route 09:47,On Scene 09:48,At Patient 09:50,ALS Assessment,Response: UnchangedSucceeded, 09:51,BP: 131/84 M,PULSE: 122,RR: 20 R,SPO2: 98 Ox,ETCO2: ,BG: ,PAIN: 8,GCS: 15, 09:53,BP: 105/68 M,PULSE: 106,RR: R,SPO2: 98 Ox,ETCO2: ,BG: ,PAIN: ,GCS: , 09:53,3-Lead ECG,Response: UnchangedSucceeded, 09:53,BP: 105/71 M,PULSE: 110,RR: R,SPO2: 100 Ox,ETCO2: ,BG: ,PAIN: ,GCS: , 09:54,12-Lead ECG,Response: UnchangedSucceeded, 09:54,BP: / M,PULSE: 109,RR: R,SPO2: 99 Ox,ETCO2: ,BG: ,PAIN: ,GCS: , 09:55,Depart Scene 10:04,At Destination 10:04,BP: / M,PULSE: 160,RR: R,SPO2: 97 Ox,ETCO2: ,BG: ,PAIN: ,GCS: , 10:32,Call Closed [facility] [address] [place] [address] EMS Patient Care Report Name: PHILIPPEJAMES L Room #: [facility].R.#: [id number] Admission: Attend Phys: Discharge: Date of : [birth year] Report #: [id number] Disclaimer [email or web address] Copyright 2020 [employer] This EMS Care Summary contains data elements from the applicable legal record (which may be displayed differently). It is designed to provide pertinent information for the following purposes: continuity of care, clinical quality, and state data reporting. The complete legal record is available to ED staff and administrators of the receiving hospital in [employer]'s Patient Tracker. All data is provided "as is."
[2020-03-13 11:02] LABS: HEMATOCRIT 40.1 % (37.0-47.0); HEMOGLOBIN 13.4 gm/dL (12.0-15.0); MCHC 33.3 g/dL (28.0-37.0); MCV 90.1 fL (80.0-100.0); PLATELET COUNT 264 thou/uL (150-400); RBC 4.45 mil/uL (4.20-5.00); RDW 15.3 % (10.5-14.5); WBC 3.3 thou/uL (4.0-11.0)
[2020-03-13 11:05] LABS: ANION GAP 12 mmol/L (7-16); BUN 11 mg/dL (7-18); CALCIUM 8.9 mg/dL (8.5-10.1); CHLORIDE 104 mmol/L (98-107); CO2 23 mmol/L (21-32); CREATININE 0.9 mg/dL (0.6-1.0); GLUCOSE 93 mg/dL (74-106); POTASSIUM 3.6 mmol/L (3.5-5.1); SODIUM 139 mmol/L (136-145)
[2020-03-13 11:15] LABS: ALBUMIN 3.7 g/dL (3.4-5.0); DIRECT BILIRUBIN < 0.1 mg/dL (<0.1-0.2); LIPASE 249 U/L (73-393); SGOT 18 U/L (15-37); SGPT 29 U/L (30-65); TOTAL BILIRUBIN 0.3 mg/dL (<0.1-1.0); TOTAL PROTEIN 7.8 g/dL (6.4-8.2); TROPONIN-I <0.06 ng/mL (<0.06)
[2020-03-13 12:03] LABS: ABSOLUTE NEUTROPHILS 1.1 thou/uL (1.4-8.2); ANISOCYTOSIS 1+; ATYPICAL LYMPHS 4 %
[2020-03-13 14:18] VITALS: BP 120/67
[2020-03-13] MEDS ORDERED: MOBIC15 MG PO (14:21)
--- NOTE | 2020-03-13 14:32 | EKG ---
[facility] [place] [address] ELECTROCARDIOGRAM REPORT Name: JAMES PHILIPPE Room #: DEP [facility]#: [id number] Admission: 03/13/20 Attend Phys: Discharge: 03/13/20 Date of : [birth year] Report #: [id number] THIS REPORT FOR: cc: Corona Camacho MD, Jeremy C. MD Park, Jin S. 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2000 Requested By: Raeann Sorto Order Number: [id number] MD: Troy Crow Measurements Intervals [place] Rate: 80 P: 45 MI: 167 QRS: 21 QRSD: 97 T: 33 QT: 389 QTc: 449 Interpretive Statements Sinus rhythm Compared to ECG 03/09/2020 20:13:51 Sinus tachycardia no longer present Atrial premature complex(es) no longer present T-wave abnormality no longer present Electronically Signed On 03-13-2020 14:30:24 CDT by Troy Crow [email or web address] <ELECTRONICALLY SIGNED> By: Troy Crow MD 03/13/20 1430 1016 [id number] Troy Crow MD /EPI
== END 2020-03-13 14:18 | disposition home or self-care (01) ==
LOC: ER 10:16
PROVIDERS: Emergency Medicine
DX: R07.89 Other chest pain (principal); R10.9 Unspecified abdominal pain; F32.9 Major depressive disorder, single episode, unspecified; F41.9 Anxiety disorder, unspecified; F90.9 Attention-deficit hyperactivity disorder, unspecified type; F17.210 Nicotine dependence, cigarettes, uncomplicated